=== PATIENT | male | born 1985 | race African-American/Black ===

== ENCOUNTER 2024-07-17 12:27 | Emergency (ER) | payer MEDICAID ==
[~2024-07-17] VITALS: Ht 193 cm; Wt 120.0 kg
[2024-07-17 12:40] VITALS: TEMP 97.4
[2024-07-17 14:09] LABS: APPEARANCE,URINE CLEAR (CLEAR); BILIRUBIN,URINE NEGATIVE (NEGATIVE); COLOR,URINE LIGHT YELLOW (YELLOW); GLUCOSE, URINE (UA) NEGATIVE (NEGATIVE); KETONES,URINE NEGATIVE (NEGATIVE); LEUKOCYTE ESTERASE ,URINE NEGATIVE (NEGATIVE); NITRATE,URINE NEGATIVE (NEGATIVE); OCCULT BLOOD,URINE TRACE (NEGATIVE); PH,URINE 5.5 (5.0-8.0); PROTEIN,URINE NEGATIVE (NEGATIVE); SPECIFIC GRAVITIY, URINE 1.025 (1.003-1.030); UROBILINOGEN,URINE <=1.0 mg/dL (<=1.0)
[2024-07-17 14:25] LABS: BACTERIA,URINE None Seen /HPF (None Seen); RBC,URINE None Seen /HPF (0-2); SQUAMOUS EPITHELIAL CELL,UR None Seen /LPF (None Seen); WBC,URINE None Seen /HPF (0-5)
[2024-07-17] MEDS ORDERED: DOXY-354 PO (15:14)
[2024-07-17] MEDS: LIDOCAINE/PF 1% 2 ML VIAL IM ONE (15:39)
[2024-07-17] MEDS: CefTRIAXone SODIUM 1 GM/VIAL IM ONE (15:39)
[2024-07-17 15:45] VITALS: BP 128/87; PULSE 69; RESP 17; O2SAT 98
== END 2024-07-17 18:02 | disposition home or self-care (01) ==
LOC: EMS 12:27
DX: N34.2 Other urethritis (principal)
CPT/HCPCS: 99283; 81001; 87491; 87591; 96372; J0696; J3490